=== PATIENT | male | born 1980 | race Caucasian/White ===

== ENCOUNTER 2020-11-04 21:26 | Emergency (ER) | payer SELFPAY ==
[~2020-11-04] VITALS: Ht 167 cm; Wt 77.0 kg
[2020-11-04 21:45] LABS: HEMATOCRIT 35 % (40-54); HEMOGLOBIN 11.8 g/dL (13.3-17.7); MEAN CORPUSCULAR HEMOGLOBIN 32 pg (25-34); MEAN CORPUSCULAR HGB CONC 33 g/dL (32-36); MEAN CORPUSCULAR VOLUME 95 fL (80-99); MEAN PLATELET VOLUME 9.5 fL (9.0-12.2); PLATELET COUNT 218 10^3/uL (130-400)
[2020-11-04] MEDS ORDERED: TETANUS,DIPTH,PERTUSS P/F (BOOSTRIX) 0.5 ML VIAL IM ONE (21:45)
[2020-11-04 21:47] LABS: BILIRUBIN,URINE NEGATIVE (NEGATIVE); CLARITY,URINE CLEAR; COLOR,URINE YELLOW; GLUCOSE, URINE (UA) NEGATIVE (NEGATIVE); KETONES,URINE NEGATIVE (NEGATIVE); LEUKOCYTE ESTERASE ,URINE NEGATIVE (NEGATIVE); NITRITE,URINE NEGATIVE (NEGATIVE); PROTEIN,URINE NEGATIVE (NEGATIVE)
[2020-11-04 21:54] LABS: ALBUMIN 3.8 GM/DL (3.2-4.5); POTASSIUM 2.9 MMOL/L (3.6-5.0)
[2020-11-04 22:01] LABS: AMORPHOUS SEDIMENT,UR RARE AMOR URATES /LPF; BACTERIA,URINE NEGATIVE /HPF; SQUAMOUS EPITHELIAL CELL,UR 0-2 /HPF
[2020-11-04 22:02] LABS: BILIRUBIN,DIRECT 0.1 MG/DL (0.0-0.3); BILIRUBIN,INDIRECT 0.2 MG/DL; BILIRUBIN,TOTAL 0.3 MG/DL (0.1-1.0); CREATININE SERUM 0.83 MG/DL (0.60-1.30)
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
[2020-11-04] MEDS ORDERED: IOHEXOL 350 MG/ML 100 ML (OMNIPAQUE 350) VIAL IV ONE (22:15)
[2020-11-04] MEDS ORDERED: HOLD METFORMIN - RECEIVED CONTRAST 20 ML VIAL IV SCH (22:15)
[2020-11-04] MEDS ORDERED: NS 100 ML (IVPB) BAG IV ONE (22:15)
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
[2020-11-04] MEDS ORDERED: POTASSIUM CL 10MEQ/50ML IVPB 50 ML IV ONE (22:30)
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
[2020-11-04] MEDS ORDERED: NS IV 1000 ML 1,000 ML IV SCH (22:45)
[2020-11-04] MEDS ORDERED: ONDANSETRON 4 MG/2 ML (SDV) Z0FRAN IVP ONE (23:15)
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
[2020-11-04] MEDS ORDERED: KCL 10 MEQ TAB (MICRO K) PO ONE (23:30)
[2020-11-05] MEDS ORDERED: KCL 10 MEQ TAB (MICRO K) PO ONE (01:43)
[2020-11-05 05:00] VITALS: BP 102/67
== END 2020-11-05 05:00 | disposition home or self-care (01) ==
LOC: ER 21:27
DX: S01.81XA Laceration without foreign body of other part of head, initial encounter (principal); S41.011A Laceration without foreign body of right shoulder, initial encounter; F10.129 Alcohol abuse with intoxication, unspecified; E87.6 Hypokalemia; Z23 Encounter for immunization; V89.2XXA Person injured in unspecified motor-vehicle accident, traffic, initial encounter
CPT/HCPCS: 51702; 70450; 71045; 71260; 72125; 74177; 80048; 80076; 81000; 82947; 85027; 93041; 99285; G0480; 36415; 80320; 90471; 90715; 96374